=== PATIENT | female | born 1960 | race Caucasian/White ===

== ENCOUNTER 2016-06-01 08:38 | Emergency (ER) | payer OTHER ==
[2013-10-08 07:26] VITALS: BMI 26.2
[~2016-06-01 08:38] MED LIST: ELAVIL25 MG PO; HYDROCODONE-APA1 TAB PO; MOBIC7.5 MG PO; NEURONTIN 300300 MG PO; NORCO 7.5-3251 EACH PO; OXYCONTIN15 MG PO; PHENERGAN25 M1 PO; ROBAXIN-750750 MG PO; STOOL SOFTENER240 MG PO
[2016-06-01 09:05] LABS: BASOPHILS 0.2 % (0.0-2.0); EOSINOPHILS 0.5 % (0-7); HEMATOCRIT 40.8 % (36.0-48.0); HEMOGLOBIN 13.5 g/dL (12-16); IMMATURE GRANULOCYTES 0.2 % (0-5); LYMPHOCYTES 12.8 % (15-50); MCH 29.5 pg (26.0-34.0); MCHC 33.1 g/dL (31.0-37.0); MCV 89.3 fL (80.0-100.0); MEAN PLATELET VOLUME 9.6 fL (7.4-10.4); MONOCYTES 4.5 % (2-11); NEUTROPHILS 81.8 % (40-80); RBC 4.57 10x6/uL (4.00-5.40); RDW 12.3 % (11.5-14.5); WBC 12.5 10x3/uL (4.8-10.8)
[2016-06-01 09:12] LABS: APTT 22.5 SECONDS (22.8-39.4); INR 0.97 (0.85-1.17); PLATELET COUNT 259 10x3/uL (130-400); PROTIME 12.7 SECONDS (11.6-15.0)
[2016-06-01 09:13] LABS: APPEARANCE CLEAR (CLEAR); BILIRUBIN NEGATIVE (NEGATIVE); COLOR YELLOW (YELLOW); GLUCOSE NEGATIVE (NEGATIVE); KETONE NEGATIVE (NEGATIVE); LEUKOCYTE ESTERASE NEGATIVE (NEGATIVE); NITRITE NEGATIVE (NEGATIVE); PROTEIN NEGATIVE (NEGATIVE); SPECIFIC GRAVITY 1.025 (1.005-1.020); UROBILINOGEN NORMAL (NORMAL)
[2016-06-01 09:14] LABS: BACTERIA FEW /hpf (NONE SEEN); EPITHELIAL CELLS 0-5 /hpf (0-5); RED CELLS - URINE 0-5 /hpf (0-5); UDS - AMPHET NEGATIVE QUAL (NEGATIVE); UDS - BARB NEGATIVE QUAL (NEGATIVE); UDS - BENZO NEGATIVE QUAL (NEGATIVE); UDS - COCAINE NEGATIVE QUAL (NEGATIVE); UDS - METH NEGATIVE QUAL (NEGATIVE); UDS - OPIATE NEGATIVE QUAL (NEGATIVE); UDS - PCP NEGATIVE QUAL (NEGATIVE); UDS - THC NEGATIVE QUAL (NEGATIVE); WHITE CELLS - URINE 0-5 /hpf (0-5)
[2016-06-01 09:20] LABS: ALBUMIN 4.5 g/dL (3.4-5.0); ALKALINE PHOSPHATASE 91 U/L (46-116); ALT (SGPT) 29 U/L (10-68); BILIRUBIN - TOTAL 0.41 mg/dL (0.2-1.3); CALC OSMOLALITY 283 mosm/kg (275-300); CALCIUM 9.3 mg/dL (8.5-10.1); CARBON DIOXIDE 28.1 mmol/L (21.0-32.0); CHLORIDE - SERUM 101 mmol/L (98-107); CREATININE - SERUM 0.8 mg/dL (0.6-1.3); GLUCOSE 113 mg/dL (74-106); POTASSIUM - SERUM 3.6 mmol/L (3.5-5.1); PROTEIN - SERUM 8.4 g/dL (6.4-8.2); SODIUM 139 mmol/L (136-145); UREA NITROGEN 27 mg/dL (7-18); eGFR NON AFRICAN AMERICAN 79 mL/min (90-120)
== END 2016-06-01 10:26 | disposition home or self-care (01) ==
LOC: D.ER 08:38
PROVIDERS: Emergency Medicine
DX: S50.12XA Contusion of left forearm, initial encounter (principal); V43.52XA Car driver injured in collision with other type car in traffic accident, initial encounter; Y93.89 Activity, other specified; Y92.410 Unspecified street and highway as the place of occurrence of the external cause; T14.8 Other injury of unspecified body region; S16.1XXA Strain of muscle, fascia and tendon at neck level, initial encounter

== ENCOUNTER 2016-10-24 06:55 | Emergency (ER) | payer BC, OTHER ==
[2013-10-08 07:26] VITALS: BMI 26.2
[2016-10-24 07:41] LABS: BASOPHILS 0.3 % (0-2); EOSINOPHILS 1.9 % (0-7); HEMATOCRIT 36.8 % (36.0-48.0); HEMOGLOBIN 12.5 g/dL (12-16); IMMATURE GRANULOCYTES 0.2 % (0-5); MCH 29.6 pg (26.0-34.0); MONOCYTES 6.4 % (2-11); NEUTROPHILS 51.2 % (40-80); PLATELET COUNT 235 10x3/uL (130-400); RBC 4.23 10x6/uL (4.00-5.40); RDW 12.5 % (11.5-14.5); WBC 5.9 10x3/uL (4.8-10.8)
[2016-10-24 07:49] LABS: ALBUMIN 3.7 g/dL (3.4-5.0); ANION GAP 9.9 mmol/L (8-16); BILIRUBIN - TOTAL 0.16 mg/dL (0.2-1.3); CALCIUM 8.7 mg/dL (8.5-10.1); CARBON DIOXIDE 28.7 mmol/L (21.0-32.0); CREATININE - SERUM 0.9 mg/dL (0.6-1.3); POTASSIUM - SERUM 3.6 mmol/L (3.5-5.1); PROTEIN - SERUM 7.1 g/dL (6.4-8.2)
[2016-10-24 08:04] LABS: APPEARANCE CLEAR (CLEAR); BACTERIA FEW /hpf (NONE SEEN); BILIRUBIN NEGATIVE (NEGATIVE); COLOR YELLOW (YELLOW); EPITHELIAL CELLS 0-5 /hpf (0-5); GLUCOSE NEGATIVE (NEGATIVE); KETONE NEGATIVE (NEGATIVE); LEUKOCYTE ESTERASE 2+ (NEGATIVE); MUCUS >1+ /lpf (NONE SEEN); NITRITE NEGATIVE (NEGATIVE); PROTEIN NEGATIVE (NEGATIVE); RED CELLS - URINE 0-5 /hpf (0-5); UROBILINOGEN NORMAL (NORMAL)
== END 2016-10-24 22:56 | disposition home or self-care (01) ==
LOC: D.ER 06:55
PROVIDERS: Emergency Medicine
DX: N39.0 Urinary tract infection, site not specified (principal); K59.00 Constipation, unspecified; R10.9 Unspecified abdominal pain

== ENCOUNTER 2017-04-28 06:44 | Emergency (ER) | payer OTHER ==
[2013-10-08 07:26] VITALS: BMI 26.2
== END 2017-04-28 07:40 | disposition home or self-care (01) ==
LOC: D.ER 06:44
DX: R42 Dizziness and giddiness (principal)

== ENCOUNTER → 2017-06-11 19:31 | Outpatient (CLI) | payer OTHER ==
[2013-10-08 07:26] VITALS: BMI 26.2
== END | disposition home or self-care (01) ==
LOC: D.MAMMO 03-25 10:00
DX: Z12.31 Encounter for screening mammogram for malignant neoplasm of breast (principal)

== ENCOUNTER 2017-07-07 23:09 | Emergency (ER) | payer BC, MEDICAID ==
[2013-10-08 07:26] VITALS: BMI 26.2
== END 2017-07-07 23:57 | disposition home or self-care (01) ==
LOC: D.ER 23:09
DX: R42 Dizziness and giddiness (principal)

== ENCOUNTER → 2017-08-28 08:28 | Outpatient (CLI) | payer BC, MEDICAID ==
[2013-10-08 07:26] VITALS: BMI 26.2
--- NOTE | ~2017-08-28 | EC ---
PATIENT:LUIS CARLOS BARNETT DATE OF SERVICE: 08/28/17 SEX: F MEDICAL RECORD: [id number] DATE OF : 64 LOCATION:D.[facility] AGE OF PATIENT: 56 ADMISSION DATE: 08/28/17 REFERRING PHYSICIAN: INTERPRETING PHYSICIAN: BERNARDO MILES MD ECHOCARDIOGRAM REPORT ECHO CHARGES 4 ECHO COMPLETE Date: 08/28 CLINICAL DIAGNOSIS: PALPITATIONS/CP/DIZZINESS/HTN ECHOCARDIOGRAPHIC MEASUREMENTS (adult normal given) AC root (d.<3.7cm) 2.4 cm LV Septum d (<1.2 cm> 0.6 cm Valve Excursion 1.4 cm LV Septum (systole) 1.4 cm Left Atria (s.<4.0cm> 2.3 cm LVPW d(<1.2cm) 0.9 cm RV (d.<2.3cm) 2.1 cm LVPW (sytole) 1.5 cm LV diastole(<5.6CM) 4.5 cm MV E-F(>70mm/sec) cm LV systole 2.5 cm LVOT Diameter 1.9 cm MV exc.(>10mm) cm Est.ejection fraction (50-75%) % DOPPLER: LVIT cm/sec A 59.0 cm/sec E 74.0 cm/sec LA cm/sec RVSP 25.3 mmHg LVOT 100 cm/sec AOP1/2T m/s Asc. Ao 110 cm/sec RVOT 81.0 cm/sec RA cm/sec PA 88.0 cm/sec AV Gradient Peak 4.9 mmHg AV Mean 2.5 mmHg AV Area 2.4 cm MV Gradient Peak 2.5 mmHg MV Mean 1.0 mmHg MV Area cm COMMENTS: Color Blender: Dario B[employer] Agent: 4 Dr. Miles TAPE# PACS Pericardial Effusion N DATE OF SERVICE: PROCEDURE: Transthoracic echocardiogram. FINDINGS: 1. Left ventricle: Normal size, shape, structure and function. Ejection fraction is hyperdynamic at 70%. 2. The right ventricle is normal size, shape, structure and function. 3. The left atrium is normal. 4. Aortic valve is normal. ECHOCARDIOGRAM REPORT [id number] LUIS CARLOS BARNETT 5. The mitral valve is normal. 6. Tricuspid valve has trace to mild tricuspid regurgitation, otherwise normal. 7. Pericardium is normal. CONCLUSION: The patient has overall normal transthoracic echocardiogram for the patient's stated age. TRANSINT:[id number] Voice Confirmation ID: [id number] DOCUMENT ID: [id number] BERNARDO MILES MD at 0719 CC: [id number] DICTATION DATE: 09/01/17 1051 PROGRAM MANAGER ENVIRONMENTAL PLANNING: 09/01/17 1303 DEP CLI 08/28/17 [place] [id number]
[~2017-08-28 08:28] MED LIST changes: +ELIQUIS2.5 MG PO; +IMITREX100 MG PO; +KEFLEX500 MG PO; +MECLIZINE HCL25 MG PO; +OXYCODONE HCL5 MG PO; +ULTRAM50 MG PO; +VISTARIL50 MG PO; +ZANAFLEX2 M1 PO; +ZANAFLEX4 MG PO
== END | disposition home or self-care (01) ==
LOC: D.ECHO 08:28
DX: R07.9 Chest pain, unspecified (principal); R00.2 Palpitations; R42 Dizziness and giddiness; I95.9 Hypotension, unspecified

== ENCOUNTER → 2017-09-23 09:14 | Outpatient (CLI) | payer BC, MEDICAID ==
[2013-10-08 07:26] VITALS: BMI 26.2
== END | disposition home or self-care (01) ==
LOC: D.LABREF 09:14
DX: M17.11 Unilateral primary osteoarthritis, right knee (principal); Z11.8 Encounter for screening for other infectious and parasitic diseases

== ENCOUNTER 2017-09-25 07:41 | Outpatient (CLI) | payer BC, MEDICAID ==
[~2017-09-25] VITALS: Ht 160 cm; Wt 52.3 kg
--- NOTE | ~2017-09-25 | HEMODYNAMI ---
PATIENT:LUIS CARLOS BARNETT MEDICAL RECORD: [id number] : 64 LOCATION:DL[facility]CAT ADMISSION DATE: 09/25/17 Generatedon:09/25/20179:37 Patient name: LUIS CARLOS BARNETT Patient #: [id number] SSN: [id number] : 1960 Date of study: 09/25/2017 Page: Of Hemodynamic Procedure Report Patient Data Patient Demographics Procedure consent was obtained First Name: LUIS CARLOS Gender: Female Last Name: ERICKA : 1960 Middle Initial: CHERYL Age: 56 year(s) Patient #: [id number] Race: Unknown SSN: [id number] Additional ID: [id number] Contact details Address: [place] [address] State: [place] City: [place] Zip code: [address] Admission Admission Data Admission Date: 09/25/2017 Admission Time: 7:41 Arrival Date: 09/25/2017 Arrival Time: 0:00 Admit Source: Other Insurance Payor: Private health insurance, Medicaid Height (in.): 62.99 BSA: 1.53 (m2) Height (cm.): 160 BMI: 20.39 (kg/m2) Weight (lbs.): 115.08 Weight (kg.): 52.2 Lab Results Lab Result Date: 09/25/2017 Lab Result Time: 0:00 Biochemistry Name Units Result Min Max BUN mg/dl 20 --(----)*- 7 18 Creatinine mg/dl 1 --(--*-)-- 0.6 1.3 CBC Name Units Result Min Max Hemoglobin g/dl 13.1 -*(----)-- 13.5 17.5 Procedure Procedure Types Cath Procedure Diagnostic Procedure C [facility] w/Coronaries Procedure Description Procedure Date Procedure Date: 09/25/2017 Procedure Start Time: 9:17 Procedure End Time: 9:33 Procedure Staff Name Function Robi Garces MD Performing Physician Mera Marx RT Monitor Hien Holt RN Nurse Donna Yin RT Scrub Procedure Data Cath Procedure Fluoroscopy Diagnostic fluoroscopy Total fluoroscopy Time: 4.1 time: 4.1 min min Diagnostic fluoroscopy Total fluoroscopy dose: 541 dose: 541 mGy mGy Contrast Material Contrast Material Type Amount (ml) Isovue 300 65 Entry Location Entry Primary Successful Side Size Upsize Upsize Entry Closure Quintanilla ccessful Closure Location (Fr) 1 (Fr) 2 (Fr) Remarks Device Remarks Radial Right 6 Fr Mechanical artery Short Compression Estimated blood loss: 5 ml Diagnostic catheters Device Type Used For End Catheter Placement DIAGNOSTIC Diagonal 110cm 5 Multi-vessel Fr catheter ([id number]) Angiography Procedure Complications No complications Procedure Medications Medication Administration Route Dosage Oxygen etCO2 Nasal cannula 2 l/min Lidocaine 2% added to field 20 Heparin Flush Bag added to field 2 bags (1000units/500ml NS) 0.9% NaCl I.V. 100 ml/hr Radial Cocktail added to field 1 syringe (Verapomil 2mg/Nitro 400mcg/Heparin 1500units) Versed I.V. 1 mg Fentanyl I.V. 50 mcg Versed I.V. 1 mg Fentanyl I.V. 50 mcg 0.9% NaCl I.V. bolus 300 ml Hemodynamics Rest BSA: 1.53 (m2) HGB: 13.1 (g/dl) O2 Consumption: Estimated: 151.71 (ml/min) O2 Co nsumption indexed: Estimated:99.16 (ml/min/m) Heart Rate: 77 (bpm) Pressure Samples Time Site Value (mmHg) Purpose Heart Use Rate(bpm) 9:23 LV 86/-4,3 EDP 80 Gradients Valve Time Site Site Mean SEP/DFP Peak To Heart Use 1 2 (mmHg) (sec/min) Peak Rate (mmHg) (bpm) Aortic 9:24 LV AO 89 Snapshots Pre Cath Intra NCS Post Cath Vital Signs Time Heart Resp SPO2 etCO2 NIBP (mmHg) Rhythm Pain Sedation Rate (ipm) (%) (mmHg) Status Level (bpm) 9:08:37 65 18 100 38.2 132/83(112) NSR 0 (11) 10(A) , No pain 9:12:47 69 24 100 34.5 112/65(91) NSR 0 (11) 10(A) , No pain 9:16:50 70 19 100 36 102/63(83) NSR 0 (11) 10(A) , No pain 9:21:16 77 19 97 41.3 86/49(67) NSR 0 (11) 10(A) , No pain 9:25:16 76 16 94 42 88/49(71) NSR 0 (11) 10(A) , No pain 9:28:16 76 15 96 45.8 85/45(63) NSR 0 (11) 10(A) , No pain 9:32:16 82 14 98 43.5 87/51(65) NSR 0 (11) 10(A) , No pain Medications Time Medication Route Dose Verified Delivered Reason Notes Effectiveness by by 9:09:12 Oxygen etCO2 2 l/min Robi Buffie used for Nasal Mili Holt RN procedure cannula 9:09:19 Lidocaine 2% added 20ml Robi Robi for local to vial Mili Garces MD anesthetic field PETERSON 9:09:25 Heparin Flush added 2 bags Robi Robi used for Bag to Mili Garces MD procedure (1000units/500ml field PETERSON NS) 9:12:55 0.9% NaCl I.V. 300 ml Robi Buffie Per bolus Mili simpson MD 9:15:46 Versed I.V. 1 mg Robi Buffie for sedation Mili Holt RN, MD 9:15:53 Fentanyl I.V. 50 mcg Orbi Buffie for sedation Mili Holt RN, MD 9:20:41 Versed I.V. 1 mg Robi Buffie for sedation Mili Holt RN, MD 9:20:45 Fentanyl I.V. 50 mcg Robi Buffie for sedation Mili Holt RN, MD 9:20:49 Radial Cocktail added 1 Robi Robi for (Verapomil to syringe Mili Garces MD vasodilation 2mg/Nitro field PETERSON 400mcg/Heparin 1500units) 9:24:02 0.9% NaCl I.V. 100 Robi Buffie Per ml/hr Mili simpson MD Procedure Log Time Note 8:39:18 Arrival Date: 09/25/2017 12:00:00 AM 8:39:22 Admit Source: Other 8:39:34 Insurance Payor : Private health insurance, Medicaid 8:40:35 Patient Height : 62.99 inches 8:40:39 Patient Weight : 115.08 lbs 8:48:12 Lab Result : Creatinine 1 mg/dl 8:48:12 Lab Result : BUN 20 mg/dl 8:48:12 Lab Result : Hemoglobin 13.1 g/dl 8:52:38 Hien Holt RN sent for patient. Start room use. 8:52:39 Time tracking: Regular hours (M-F 7:00 - 5:00) 8:52:43 Plan of Care:Hemodynamics will remain stable., Cardiac rhythm will remain stable., Comfort level will be maintained., Respiratory function will remain adequate., Patient/ family verbilizes understanding of procedure., Procedure tolerated without complication., Recovers from procedure without complications.. 9:01:57 Patient received from Pre/Post Procedure Room to CCL 2 Alert and oriented. Tansferred to table in Supine position. 9:01:58 Warm blankets applied, and venice hugger turned on for patient comfort. 9:01:59 Correct patient and procedure confirmed by team. 9:02:04 Signed procedure consent form obtained from patient. 9:02:05 ECG and BP/O2 sat monitors applied to patient. 9:07:28 Vital chart was started 9:09:12 Oxygen 2 l/min etCO2 Nasal cannula was administered by Hien Holt RN; used for procedure; 9:09:19 Lidocaine 2% 20ml vial added to field was administered by Robi Garces MD; for local anesthetic; 9:09:25 Heparin Flush Bag (1000units/500ml NS) 2 bags added to field was administered by Robi Garces MD; used for procedure; 9:11:37 Baseline sample Acquired. 9:11:41 Rhythm: sinus rhythm 9:11:43 Full Disclosure recording started 9:11:46 H&P Date Dictated: 09/25/2017 Within 30 days and on chart., H&P Addendum completed by physician on day of procedure. (MUST COMPLETE FOR ALL OUTPATIENTS). 9:11:47 Pre-procedure instructions explained to patient. 9:11:48 Pre-op teaching completed and patient verbalized understanding. 9:11:49 Family in waiting room. 9:12:32 Patient NPO since Midnight. 9:12:33 Is the patient allergic to Iodine/contrast media? No. 9:12:34 Was the patient premedicated? No 9:12:47 Is patient on blood thinner?Yes 9:12:49 ACC The patient was administered the following blood thiners within the last 24 hours: ACCPlavix 9:12:51 Patient diabetic? No. 9:12:54 Previous problem with sedation/anesthesia? No ? 9:12:55 0.9% NaCl 300 ml I.V. bolus was administered by Hien Holt RN; Per physician; 9:12:56 Snore? Yes 9:12:57 Sleep apnea? No 9:12:57 Deviated septum? No 9:12:58 Opens mouth fully? Yes 9:12:59 Sticks out tongue? Yes 9:13:00 Airway obstruction? No ? 9:13:13 Dentures? No ? 9:13:28 Pre procedure: right dorsailis pedis pulse 2+ Normal; easily identifiable; not easily obliterated 9:13:29 Pre procedure: left dorsailis pedis pulse 2+ Normal; easily identifiable; not easily obliterated 9:13:31 Patient pain scale 0/10 ?. 9:13:37 IV patent on arrival in left forearm with 0.9% NaCl at [facility]. 9:13:39 Lab results completed and on chart. 9:13:56 Right Radial & Right Groin area was prepped with chlora-prep and draped in sterile fashion 9:13:57 Alarms reviewed by R. N. 9:13:57 Sharps counted by scrub and verified by R.N. 9:14:30 Physician arrived 9:14:31 --------ALL STOP TIME OUT------ 9:14:31 Final Timeout: patient, procedure, and site verified with staff and physician. All members of the team are in agreement. 9:14:34 Right Radial & Right Groin site verified by team. 9:14:37 Physical assessment completed. ASA score P 2 - A patient with mild systemic disease as per Robi Garces MD. 9:14:40 Sedation plan: IV Moderate Sedation Medication:Versed, Fentanyl 9:14:43 Use device set Radial Dx or PCI 9:14:44 ACIST Syringe (19199) opened to sterile field. 9:14:45 Medline Cath Pack ([id number]) opened to sterile field. 9:14:45 Bag Decanter () opened to sterile field. 9:14:46 DIAGNOSTIC WIRE .035 260cm J wire (722435) opened to sterile field. 9:14:46 ACIST Hand Control (05506) opened to sterile field. 9:14:47 ACIST Manifold (14056) opened to sterile field. 9:14:47 Tegaderm 4 x 4 (1626W) opened to sterile field. 9:14:48 MBrace Wrist Support ([id number]) opened to sterile field. 9:14:50 SHEATH 6Fr Prelude Radial ([id number]) opened to sterile field. 9:15:46 Versed 1 mg I.V. was administered by Hien Holt RN; for sedation; 9:15:53 Fentanyl 50 mcg I.V. was administered by Hien Holt RN; for sedation; 9:17:38 Procedure started. 9:17:50 Local anesthetic to right radial artery with Lidocaine 2% by Robi Garces MD.INITIAL ACCESS ONLY 9:17:59 A 6 Fr Short sheath was inserted into the Right Radial artery 9:20:11 A DIAGNOSTIC Diagonal 110cm 5 Fr catheter (599425) was advanced over the wire and used for Multi-vessel Angiography. 9:20:41 Versed 1 mg I.V. was administered by Hien Holt RN; for sedation; 9:20:45 Fentanyl 50 mcg I.V. was administered by Hien Holt RN; for sedation; 9:20:49 Radial Cocktail (Verapomil 2mg/Nitro 400mcg/Heparin 1500units) 1 syringe added to field was administered by Robi Garces MD; for vasodilation; 9:23:48 LV hemodynamics recorded. 9:23:49 LV gram done using [place] 9:24:01 Injector settings: Ml/sec: 12, Volume: 8, 9:24:02 0.9% NaCl 100 ml/hr I.V. was administered by Hien Holt RN; Per physician; 9:24:20 EF : 65 % 9:24:56 LCA angiography performed. 9:24:59 Injector settings: Ml/sec: 3, Volume: 6, 9:31:34 RCA angiography performed. 9:31:38 Injector settings: Ml/sec: 3, Volume: 6, 9:31:52 Catheter removed. 9:31:55 TR BAND Standard ([id number]) opened to sterile field. 9:32:03 Sheath removed intact; hemostasis achieved with Mechanical Compression to the Right Radial artery. 9:32:05 Procedure ended.(Physican Out) 9:32:38 Fluoroscopy time 04.10 minutes. 9:32:41 Fluoroscopy dose: 541 mGy 9:32:41 Flurop Dose total: 541 9:32:45 Contrast amount:Isovue 300 65ml. 9:32:46 Sharps counted by scrub and verified by R.N. 9:32:49 TR band inflated with 10cc of air. 9:32:51 Insertion/operative site no bleeding no hematoma. 9:32:58 Post right radial artery:stable 9:33:00 Post Procedure Pulses reassessed and unchanged 9:33:03 Post procedure rhythm: unchanged. 9:33:06 Estimated blood loss: 5 ml 9:33:07 Post procedure instruction explained to patient.Patient verbalizes understanding. 9:33:08 Patient needs reinforcement of post procedure teaching. 9:33:19 Procedure type changed to Cath procedure, Diagnostic procedure, LHC, LHC w/Coronaries 9:33:20 Procedure and supply charges have been captured, reviewed, submitted and are correct. 9:33:24 Procedure Complication : No complications 9:33:27 Vital chart was stopped 9:33:27 See physician's report for complete and final results. 9:33:31 Report given to Pre/Post Procedure Room. 9:33:34 Patient transfered to Pre/Post Procedure Room with Stretcher. 9:33:36 Procedure ended. 9:33:36 Full Disclosure recording stopped 9:33:41 End room use (Document Last) Device Usage Item Name Manufacture Quantity Catalog Number Hospital Part Current M inimal Lot# / Charge Number Stock Stock Serial# Code ACIST Syringe Acist 1 [id number] 147425 006267 080303 2 0 (12224) [employer] Medline Cath Cardinal 1 [id number] 222427 13450 849044 5 Pack Health ([id number]) Bag Decanter Microtek 1 263894 10374 010715 5 () Medical Inc. DIAGNOSTIC WIRE St [place] 1 806247 389209 907957 398201 3 0 .035 260cm J wire (547346) ACIST Hand Acist 1 44876 356791 416222 825055 5 Control (27830) [employer] Inc ACIST Manifold Acist 1 41687 092106 678403 353748 5 (69407) [employer] Systems Inc Tegaderm 4 x 4 3M 1 1626W 718003 425738 720612 5 (1626W) MBrace Wrist Advanced 1 140-0250-00 159953 17901 969911 5 Support Vascular ([id number]) Dynamics SHEATH 6Fr Merit 1 [id number] 459819 139151 293124 5 Prelude Radial Medical ([id number]) DIAGNOSTIC Terumo 1 40-1876 974762 964609 061123 5 Diagonal 110cm 5 Fr catheter (719424) TR BAND Terumo 1 [id number] 507691 834263 147212 4 0 Standard ([id number]) Signature Audit Huslia Stage Time Signature Unsigned Intra-Procedure 09/25/2017 Mera Marx 9:37:34 AM RT(R) Signatures Monitor : Mera Marx RT Signature : Date : Time : [facility] [address] [place] [address]
--- NOTE | ~2017-09-25 | OP ---
PATIENT NAME: LUIS CARLOS BARNETT MEDICAL RECORD: [id number] :64 LOCATION:D.CAT ADMISSION DATE: SURGEON: ROBI MILES MD DATE OF OPERATION: 09/25/2017 PROCEDURES: Left heart cath, LV gram, coronary angiogram. SOCIAL SERVICES ASSISTANT: Robi Miles MD PROCEDURE IN DETAIL: The patient was brought into cardiac catheterization lab. The right wrist was sterilely prepped and draped. We had a 6-Swedish sheath placed in the right radial artery using modified Seldinger technique. We then intubated the left coronary artery, the right coronary artery, and the left ventricular cavity respectively for complete left heart catheterization. FINDINGS: 1. Left main is normal. 2. The LAD has a 40% to 50% proximal stenosis with diffuse plaquing. 3. The circumflex has mild plaquing. It is nondominant. 4. The RCA is a dominant vessel with mild plaquing. HEMODYNAMICS: Left ventricular ejection fraction of 65%. End-diastolic pressure was normal. There was no significant mitral regurgitation. No gradient across the aortic valve. IMPRESSION: Mild coronary artery disease with preserved LV systolic function. No hemodynamically significant stenosis. Would recommend aggressive secondary risk factor modifications. TRANSINT:[id number] Voice Confirmation ID: [id number] DOCUMENT ID: [id number] ROBI MILES MD at 1144 CC: [id number] DICTATION DATE: 09/25/17 0935 SHUTTLECOCK FEATHER TRIMMER: 09/25/17 1004 DEP CLI 09/25/17 [place] [id number] [place] [address]
[2017-09-25 06:56] VITALS: BP 120/78; Ht 160 cm; Wt 52.3 kg
[2017-09-25 07:02] LABS: HEMATOCRIT 39.7 % (36.0-48.0); HEMOGLOBIN 13.1 g/dL (12-16); MCH 29.5 pg (26.0-34.0); MCV 89.4 fL (80.0-100.0); MEAN PLATELET VOLUME 9.1 fL (7.4-10.4); PLATELET COUNT 239 10x3/uL (130-400); RBC 4.44 10x6/uL (4.00-5.40); RDW 12.6 % (11.5-14.5); WBC 4.7 10x3/uL (4.8-10.8)
[2017-09-25 07:27] LABS: ANION GAP 8.1 mmol/L (8-16); CALCIUM 8.6 mg/dL (8.5-10.1); CARBON DIOXIDE 32.7 mmol/L (21.0-32.0); POTASSIUM - SERUM 3.8 mmol/L (3.5-5.1)
[~2017-09-25 07:41] MED LIST changes: -ELIQUIS2.5 MG PO; -KEFLEX500 MG PO; -MECLIZINE HCL25 MG PO; -OXYCODONE HCL5 MG PO; -VISTARIL50 MG PO; -ZANAFLEX2 M1 PO
[2017-09-25 07:51] LABS: BASOPHILS 1 % (0-2); EOSINOPHILS 3 % (0-7); LYMPHOCYTES 51 % (15-50); MONOCYTES 10 % (2-11); NEUTROPHILS 34 % (40-80); PLATELET ESTIMATE NORMAL
[2017-10-07] MEDS ORDERED: ELAVIL25 MG PO (12:18)
[2017-10-07] MEDS ORDERED: ZANAFLEX2 M1 PO (12:19)
[2017-10-07] MEDS ORDERED: MECLIZINE HCL25 MG PO (12:22)
== END 2017-09-25 12:05 ==
LOC: D.CATH 07:41
PROVIDERS: Internal Medicine Cardiovascular Disease
DX: R07.9 Chest pain, unspecified (principal); R94.39 Abnormal result of other cardiovascular function study; R42 Dizziness and giddiness; E78.5 Hyperlipidemia, unspecified

== ENCOUNTER 2017-10-08 10:00 | Inpatient (IN) | payer BC, MEDICAID ==
[~2017-10-08] VITALS: Ht 160 cm; Wt 53.2 kg
--- NOTE | ~2017-10-08 | OP ---
PATIENT NAME: LUIS CARLOS COTTO MEDICAL RECORD: [id number] :64 LOCATION:D.[facility].2203 ADMISSION DATE:10/14/17 SURGEON: DELMY STINSON, DATE OF OPERATION: 10/14/2017 PROCEDURE PERFORMED: Right total knee arthroplasty. PREOPERATIVE DIAGNOSIS: Right knee osteoarthritis, end-stage. POSTOPERATIVE DIAGNOSIS: Right knee osteoarthritis, end-stage. INDICATIONS: Ms. Cotto is a 56-year-old female, who presented to my office with right knee osteoarthritis, been seen for about a year. We tried injections in all manner of conservative management. She was tired of the knee pain, affecting her activities of daily living and she was ready to get something done to get back to doing things she enjoyed due to the pain and stiffness. I informed her we could do a total knee replacement. She was aware of the risks and benefits including infection, bleeding, nerve damage, damaged vessels, swelling, need for further surgery. She was okay with that risk and the risk of blood clots and she consents to the procedure. DESCRIPTION OF PROCEDURE: The patient was given a block preoperatively by anesthesia. Taken to the operative suite, given a gram of Ancef and gentamicin as well due to urinary tract infection. Once this was given, the patient was in the supine position and LMA was placed, and she was put to sleep with a general anesthetic. The right lower extremity was prepped and draped in sterile fashion. A timeout was performed. Everyone was in agreeance with the correct side, site, patient, and procedure. Incision was then marked out on the anterior aspect of the knee and then the knee was wrapped with Ioban. The right lower leg was then exsanguinated with an Esmarch and tourniquet was inflated to 350 mmHg and it was up for 42 minutes. Once tourniquet was inflated, the Esmarch was removed and the incision began on the skin with a 10 blade scalpel down to the capsule itself. A fresh 10-blade was used then to do the medial parapatellar approach of the capsulotomy and the knee was exposed. The fat pad was taken out and the knee was brought to extension and the patella was milled down. The knee was flexed. Retractors were placed and the intramedullary canal was entered using a reamer. The distal femur guide was then entered into the femur and it was cut off the guide. The tibia was then exposed. The ACL was removed and the tibia was cut as well. The knee was then brought into extension and the menisci were removed using a lamina charging operator and Army-Matlacha to retract. Once the menisci removed, extension block was put in and seemed to need to remove two more millimeters of tibia, this was done and the extension block fit well. The knee was then flexed up and the femur was sized to be a 60 cutting block. The 4-in-1 cutting block was put into place and the femur was cut. The trial was then put on the femur and then the tibia was drilled for the implant. A 31 thin patella, 6.2 was drilled for. Then, the tibial tray with a 10 poly was floated into the knee and ranged 4 to 5 times and rotation was marked of the tibial tray. The lug holes were then drilled on the femur and the femoral trial was removed as well as the tibial tray. The tibia was then exposed and sized to be a 71; 71 fit the best and this was drilled and punched. The cement was mixed. The tibia was thoroughly irrigated and then cement was placed on the tibial implant and the tibia itself. This was then impacted into place with the excess cement removed. This was done twice. The femur implant was then placed on the femur and then a 10 poly was put in between them. Knee was brought to extension and held that way and then the patella was put on the patellar OPERATIVE REPORT [id number] LUIS CARLOS COTTO squeezer, it was put on the place and held in place with the excess cement removed. The tourniquet was then let down at 42 minutes and all bleeders were then coagulated. After the cement had dried, the patellar squeezer was removed and a trial to a 12; 12 poly seemed to fit the best. A suture retaining bearing poly and this was then put into place. The locking mechanism pin for the tibial tray was then put into place and then the knee was thoroughly irrigated and Surgicel beads were put in the knee. The capsule was then closed with #1 Vicryls in a [id number] fashion and then the capsule was irrigated and the skin was closed with 2-0 Vicryl and a ZipLine was placed on the knee. A dressing was put on of Adaptic, 4 x 4s, ABD, Webril, Leo wrap and then a stocking up to the knee, and the patient was awakened and taken to recovery in stable condition. Blood loss was approximately 150 mL. COMPLICATIONS: None. TRANSINT:[id number] Voice Confirmation ID: [id number] DOCUMENT ID: [id number] DELMY STINSON DO at 1324 CC: [id number] DICTATION DATE: 10/14/17903 BILLING CLERK: 10/14/17 0947 ADM IN [facility] [address] [place] [address]
--- NOTE | ~2017-10-08 | CN ---
PATIENT NAME:LUIS CARLOS BARNETT MEDICAL RECORD: [id number] : 64 LOCATION:D.[facility]2 ADMIT DATE: 10/14/17 ACCOUNT: [id number] CONSULTING PHYSICIAN: ERICA EL DO REFERRING PHYSICIAN: DELMY STINSON DO DATE OF CONSULTATION: 10/15/2017 REASON FOR CONSULT: Medical management; insomnia; migraines, the patient is admitted; right total knee replacement secondary to degenerative arthritis postop day #1. REVIEW OF SYSTEMS: GENERAL: No acute change in weight or appetite. HEENT: No cephalgia, visual changes, tinnitus, epistaxis, or dysphagia. CARDIOVASCULAR: Denies chest pain, denies palpitations. PULMONARY: Denies hemoptysis, denies night sweats. GASTROINTESTINAL: Denies hematemesis, hematochezia or melena. Admits bowel movement last night. GENITOURINARY: Denies dysuria. MUSCULOSKELETAL: Status post right total knee, history of degenerative arthritis. ENDOCRINE: Denies polyuria, polydipsia, or polyphagia. CURRENT MEDICATIONS: Amitriptyline 50 mg at bedtime, tizanidine 2 mg b.i.d., Imitrex 100 mg p.r.n. migraine, pain medication for acute surgery, Eliquis for DVT prophylaxis. ALLERGIES: REPORTED LYRICA AND MORPHINE. PHYSICAL EXAMINATION: VITAL SIGNS: Temp 97.5, blood pressure is 117/68, heart rate 94, respirations 18, O2 sats 98% room air. GENERAL: Alert, oriented, pain presently well controlled. HEENT: Normocephalic, atraumatic. Eyes: Pupils equal, round, reactive. Ears: Canals patent, TMs are intact. Nose: Nares patent without drainage. Throat: No erythema, no exudates. NECK: Supple. No lymphadenopathy, no JVD. HEART: Regular rate and rhythm. No S3, S4, no rub. LUNGS: Clear to auscultation bilaterally. Breathing is nonlabored. ABDOMEN: Soft, nontender. Bowel sounds positive. EXTREMITIES: Present times 4. Right lower extremity and range of motion device, the patient is tolerating well. LABORATORY DATA: CBC: White count 10.4, hemoglobin 11.1, hematocrit 33.3, platelets 208. ASSESSMENT AND PLAN: 1. Status post right total knee, continue orthopedic pathway, deep venous thrombosis prophylaxis. 2. History of migraines. Continue medications p.r.n. 3. Insomnia. Continue amitriptyline 50 mg at bedtime. Supportive care. I appreciate this consult. We will follow accordingly. TRANSINT:[id number] Voice Confirmation ID: [id number] DOCUMENT ID: [id number] CONSULT REPORT [id number] LUIS CARLOS BARNETT, ERICA COHEN at 0752 CC: [id number] DICTATION DATE: 10/15/17 08 SALES PLANNING MANAGER: 10/15/17 0853 ADM IN [place] [address] [place] [address]
[~2017-10-08 10:00] MED LIST changes: +MECLIZINE HCL25 MG PO; +ZANAFLEX2 M1 PO
[2017-10-08 12:17] LABS: BASOPHILS 0.7 % (0-2); EOSINOPHILS 1.3 % (0-7); HEMATOCRIT 39.1 % (36.0-48.0); HEMOGLOBIN 13.1 g/dL (12-16); IMMATURE GRANULOCYTES 0.2 % (0-5); LYMPHOCYTES 35.3 % (15-50); MCHC 33.5 g/dL (31.0-37.0); MCV 89.7 fL (80.0-100.0); NEUTROPHILS 56.5 % (40-80); PLATELET COUNT 253 10x3/uL (130-400); RBC 4.36 10x6/uL (4.00-5.40); RDW 12.6 % (11.5-14.5)
[2017-10-08 12:23] LABS: CALC OSMOLALITY 278 mosm/kg (275-300); CALCIUM 8.3 mg/dL (8.5-10.1); CARBON DIOXIDE 33.7 mmol/L (21.0-32.0); CHLORIDE - SERUM 103 mmol/L (98-107); CREATININE - SERUM 0.8 mg/dL (0.6-1.3); GLUCOSE 76 mg/dL (74-106); POTASSIUM - SERUM 3.7 mmol/L (3.5-5.1); SODIUM 140 mmol/L (136-145); UREA NITROGEN 14 mg/dL (7-18); eGFR NON AFRICAN AMERICAN 79 mL/min (90-120)
[2017-10-08 12:28] LABS: APTT 26.8 SECONDS (22.8-39.4); INR 0.91 (0.85-1.17); PROTIME 11.9 SECONDS (11.6-15.0)
[2017-10-08 12:34] LABS: APPEARANCE CLEAR (CLEAR); BACTERIA FEW /hpf (NONE SEEN); BILIRUBIN NEGATIVE (NEGATIVE); COLOR YELLOW (YELLOW); EPITHELIAL CELLS OCC /hpf (0-5); GLUCOSE NEGATIVE (NEGATIVE); KETONE NEGATIVE (NEGATIVE); NITRITE NEGATIVE (NEGATIVE); PROTEIN NEGATIVE (NEGATIVE); RED CELLS - URINE 0-5 /hpf (0-5); UROBILINOGEN NORMAL (NORMAL); WHITE CELLS - URINE OCC /hpf (0-5)
[2017-10-14 06:17] VITALS: BP 124/68; BMI 20.4
[2017-10-14 10:32] VITALS: BP 114/71
[2017-10-14 11:46] VITALS: BP 114/71; Ht 160 cm; Wt 53.2 kg
[2017-10-14 12:43] VITALS: BP 103/37
[2017-10-14 20:00] VITALS: BP 108/58
[2017-10-15 04:00] VITALS: BP 117/68
[2017-10-15 04:24] LABS: HEMATOCRIT 33.3 % (36.0-48.0); HEMOGLOBIN 11.1 g/dL (12-16); MCH 30.1 pg (26.0-34.0); MCHC 33.3 g/dL (31.0-37.0); MCV 90.2 fL (80.0-100.0); MEAN PLATELET VOLUME 9.6 fL (7.4-10.4); RBC 3.69 10x6/uL (4.00-5.40); RDW 12.3 % (11.5-14.5); WBC 10.4 10x3/uL (4.8-10.8)
[2017-10-15 08:28] VITALS: BP 124/70
[2017-10-15 12:15] VITALS: BP 94/50
[2017-10-15 16:39] VITALS: BP 126/75
[2017-10-15 20:00] VITALS: BP 104/70
[2017-10-16 04:00] VITALS: BP 138/81
[2017-10-16 04:30] LABS: HEMATOCRIT 32.7 % (36.0-48.0); HEMOGLOBIN 10.8 g/dL (12-16); MCH 29.5 pg (26.0-34.0); MCV 89.3 fL (80.0-100.0); MEAN PLATELET VOLUME 9.7 fL (7.4-10.4); RBC 3.66 10x6/uL (4.00-5.40); RDW 12.7 % (11.5-14.5); WBC 9.1 10x3/uL (4.8-10.8)
[2017-10-16 21:00] VITALS: BP 117/100
[2017-10-17 04:00] VITALS: BP 143/83
[2017-10-17 08:28] VITALS: BP 146/89
[2017-10-17] MEDS ORDERED: OXYCODONE HCL5 MG PO (09:02)
[2017-10-17] MEDS ORDERED: ELIQUIS2.5 MG PO (09:02)
[2017-10-17] MEDS ORDERED: KEFLEX500 MG PO (09:03)
[2017-10-17] MEDS ORDERED: VISTARIL50 MG PO (09:03)
[2017-10-17 13:18] VITALS: BP 111/73
== END 2017-10-17 14:21 | disposition home or self-care (01) | DRG 470 ==
LOC: D.SDCHOLD 10:00 → D.MS 10-14 05:00 → D.SDCHOLD 10-14 05:00 → D.MS 10-14 09:34 → D.SDCHOLD 10-14 10:00 → D.MS 10-14 16:30
PROVIDERS: Orthopaedic Surgery
PROC: 0SRC0J9 Replacement of Right Knee Joint with Synthetic Substitute, Cemented, Open Approach (ICD-10-PCS; principal; 2017-10-14 07:30)
DX: M17.11 Unilateral primary osteoarthritis, right knee (principal); G47.00 Insomnia, unspecified; Z87.891 Personal history of nicotine dependence

== ENCOUNTER → 2017-11-10 16:53 | Outpatient (CLI) | payer BC, MEDICAID ==
[~2017-11-10 16:53] MED LIST changes: +ELIQUIS2.5 MG PO; +KEFLEX500 MG PO; +OXYCODONE HCL5 MG PO; +VISTARIL50 MG PO
[2017-11-10 19:04] LABS: CHOL - HDL RATIO 4.6 ratio (2.3-4.1); LDL-HDL RATIO 3.1 ratio (1.5-3.5)
== END | disposition home or self-care (01) ==
LOC: D.LABREF 16:53
PROVIDERS: Internal Medicine Cardiovascular Disease
DX: E78.5 Hyperlipidemia, unspecified (principal)

== ENCOUNTER 2018-01-06 09:12 | Day surgery (SDC) | payer MEDICAID ==
[2018-01-05 14:53] LABS: BASOPHILS 0.4 % (0-2); EOSINOPHILS 1.9 % (0-7); HEMATOCRIT 36.8 % (36.0-48.0); HEMOGLOBIN 11.9 g/dL (12-16); IMMATURE GRANULOCYTES 0.2 % (0-5); LYMPHOCYTES 26.1 % (15-50); MCH 28.1 pg (26.0-34.0); MCHC 32.3 g/dL (31.0-37.0); MEAN PLATELET VOLUME 8.4 fL (7.4-10.4); MONOCYTES 5.6 % (2-11); NEUTROPHILS 65.8 % (40-80); RBC 4.23 10x6/uL (4.00-5.40); RDW 13.6 % (11.5-14.5); WBC 8.2 10x3/uL (4.8-10.8)
[2018-01-05 15:19] LABS: PLATELET COUNT 353 10x3/uL (130-400)
[2018-01-05 17:53] LABS: ERYTHROCYTE SEDIMENTATION RATE 43 mm/hr (0-30)
[~2018-01-06] VITALS: Ht 160 cm; Wt 51.3 kg
--- NOTE | ~2018-01-06 | OP ---
PATIENT NAME: LUIS CARLOS COTTO MEDICAL RECORD: [id number] :64 LOCATION:[facility] ADMISSION DATE: SURGEON: FLO STINSON DO DATE OF OPERATION: 01/06/2018 PROCEDURE PERFORMED: Right knee arthroscopy with lysis of adhesions and manipulation under anesthesia. PREOPERATIVE DIAGNOSIS: Arthrofibrosis of the right knee, status post right total knee on 10/14/2017. POSTOPERATIVE DIAGNOSIS: Arthrofibrosis of the right knee, status post right total knee on 10/14/2017. INDICATIONS: Ms. Cotto is a 57-year-old female who had her right knee replaced on the 14 of October this year. She was doing well postop and then, in the last month, she started regressing as far as her motion. She went from having 120 of flexion to 95. She stated it kept getting tighter and wanted something done. I informed her that we should probably jump on it quick before it froze up more and she was onboard with that. I informed her of the risks and benefits of the procedure including infection, that it was high risk doing this, getting adhesions out with the knee scope and that we would test her for any infection. Her labs showed no white count elevation. Her CRP was not elevated; however, her ESR was elevated to 43. With those other two not being elevated, I then did not suspect infection. She was informed of the risks and benefits and consented to the procedure. SURGEON: Flo Stinson DO DESCRIPTION OF PROCEDURE: The patient was taken to the operative suite and laid in the supine position. Right lower extremity was prepped and draped in sterile fashion. Time-out was performed and everyone was in agreement with correct side, site, and patient. The patient received gentamicin and Ancef preoperatively. Then, the knee scope began. It was first established in the lateral portal with a scalpel and the scope was entered with the trocar and then the scope replaced the trocar. The medial portal was then established with an 18-gauge spinal needle and a #15 blade scalpel. Trocar was then entered and a shaver. Adhesions were taken down in superior pouch and along the medial and lateral aspects of the knee. The scope was then switched from the lateral portal to the medial portal. The shaver was placed through the lateral portal and again more adhesions were taken down. Everything was removed at that time and manipulation was done with the knee. The knee flexed back all the way to her buttocks, getting greater than 125 degrees of flexion at that point. This was held for few seconds and then released. The portal sites were closed with 4-0 Monocryl on the lateral side with inverted interrupted stitch, the medial portal with inverted interrupted, and then a horizontal mattress over it on the skin. Then, Adaptic, 4 x 4s, and Tegaderm were placed on the knee. Webril and Leo wrap were then placed on the knee. The patient was awakened and taken to recovery in stable condition. BLOOD LOSS: Minimal. COMPLICATIONS: None. TRANSINT:[id number] Voice Confirmation ID: [id number] DOCUMENT ID: [id number] OPERATIVE REPORT [id number] LUIS CARLOS COTTO,FLO Davis DO at 1825 CC: [id number] DICTATION DATE: 01/06/18 1344 BIOASSAYIST: 01/06/18 1532 [facility] 01/06/18 [address] [place] [address]
[2018-01-06 09:26] VITALS: Ht 160 cm; Wt 51.3 kg
[2018-01-06] MEDS ORDERED: OXYCODONE-APAP1 T10 PO (13:34)
[2018-01-06] MEDS ORDERED: VISTARIL50 MG PO (13:35)
[2018-01-06] MEDS ORDERED: TORADOL10 MG PO (13:35)
[2018-01-06] MEDS ORDERED: ZOFRAN ODT4 MG/UDTAB PO (13:37)
== END 2018-01-06 16:30 | disposition home or self-care (01) ==
LOC: D.OPS 09:12 → D.PAN 15:30 → D.OPS 16:30
PROVIDERS: Orthopaedic Surgery
DX: T84.82XA Fibrosis due to internal orthopedic prosthetic devices, implants and grafts, initial encounter (principal); M24.661 Ankylosis, right knee; Z01.812 Encounter for preprocedural laboratory examination

== ENCOUNTER → 2018-05-12 17:32 | Outpatient (CLI) | payer MEDICAID ==
[~2018-05-12 17:32] MED LIST changes: +OXYCODONE-APAP1 T10 PO; +TORADOL10 MG PO; +ZOFRAN ODT4 MG/UDTAB PO
[2018-05-12 18:38] LABS: CHOL - HDL RATIO 4.8 ratio (2.3-4.1); LDL-HDL RATIO 3.3 ratio (1.5-3.5)
== END | disposition home or self-care (01) ==
LOC: D.LABREF 17:32
PROVIDERS: ATTEND Internal Medicine Interventional Cardiology
DX: E78.5 Hyperlipidemia, unspecified (principal)

== ENCOUNTER 2018-08-28 00:16 | Emergency (ER) | payer MEDICAID ==
[~2018-08-28] VITALS: Ht 160 cm; Wt 68.2 kg
[2018-08-28 00:20] VITALS: Ht 160 cm; Wt 68.2 kg
[2018-08-28 02:28] VITALS: BP 133/79
== END 2018-08-28 02:28 | disposition home or self-care (01) ==
LOC: D.ER 00:16
DX: T16.2XXA Foreign body in left ear, initial encounter (principal); X58.XXXA Exposure to other specified factors, initial encounter; Y93.89 Activity, other specified; Y92.89 Other specified places as the place of occurrence of the external cause

== ENCOUNTER → 2018-12-09 13:00 | Outpatient (CLI) | payer BC, MEDICAID ==
[2018-08-28 00:20] VITALS: BMI 26.6
--- NOTE | 2018-12-09 14:03 | NUR ---
TIME OUT PERFORMED BY DR. BHAT & NICOLE NICOLE RTR. PATIENT, , & PROCEDURE VERIFIED
== END | disposition home or self-care (01) ==
LOC: D.RAD 13:00
PROVIDERS: ATTEND Orthopaedic Surgery
DX: S43.432A Superior glenoid labrum lesion of left shoulder, initial encounter (principal)

== ENCOUNTER 2019-04-30 06:15 | Day surgery (SDC) | payer BC, MEDICAID ==
[2019-04-29 11:06] LABS: HEMATOCRIT 39.8 % (36.0-48.0); HEMOGLOBIN 12.8 g/dL (12-16); MCH 29.1 pg (26.0-34.0); MCHC 32.2 g/dL (31.0-37.0); MCV 90.5 fL (80.0-100.0); RBC 4.4 10x6/uL (4.00-5.40); RDW 13.3 % (11.5-14.5); WBC 7.8 10x3/uL (4.8-10.8)
--- NOTE | 2019-04-29 14:19 | NUR ---
DALE FROM DR STINSON'S CALLED AND STATED PT WENT AND SHOW DR MORROW TODAY FOR HER ABNORMAL EKG THAT NEEDED CARDIAC CLEARANCE PER DR LEMON. DR MORROW STATED SHE HAD NO CHANGED FROM LAST YR AND PROCEED WITH SURGERY.
[~2019-04-30] VITALS: Ht 160 cm; Wt 50.8 kg
[~2019-04-30 06:15] MED LIST changes: +CYCLOBENZAPRINE10 MG PO; +FEXOFENADINE HC60 MG PO; +PERCOCET 7.5/321 TAB PO
[2019-04-30 07:39] VITALS: BP 139/90; Ht 160 cm; Wt 50.8 kg
[2019-04-30] MEDS ORDERED: VISTARIL50 MG PO (08:30)
[2019-04-30] MEDS ORDERED: DILAUDID4 MG PO (08:30)
[2019-04-30] MEDS ORDERED: ZOFRAN ODT4 MG/UDTAB PO (08:31)
--- NOTE | 2019-04-30 10:48 | NUR ---
1041-REC'D FROM RR. DROWSY,EASILY AROUSED WITH VERBAL STIMULI. DRESSING TO LEFT SHOULDER CDI. DENIES PAIN. VSS. REVIEWED DISCHARGE CRITERIA. CL IN EASY REACH
--- NOTE | 2019-04-30 11:41 | NUR ---
1120-AMBULATED TO RESTROOM WITH STEADY GAIT. VSS. DENIES PAIN. DRESSINGS TO LEFT SHOUDER CDI. LEFT ARM IN SLING. FULL LIQUID TRAY TO ROOM.
--- NOTE | 2019-04-30 11:42 | NUR ---
1135-TOLERATED TRAY. DENIES PAIN. DRESSING CDI. REMOVED IV FROM RIGHT ARM WITH CATH INTACT,DISPOSED INTO SHARPS,COVERED SITE WITH GUAZE,SECURED WITH MEDIPORE TAPE. AWAITING FOR FAMILY TO ARRIVE TO TRANSPORT HOME
--- NOTE | 2019-04-30 15:25 | OP ---
PATIENT NAME: LUIS CARLOS COTTO MEDICAL RECORD: [id number] :64 LOCATION:[facility] ADMISSION DATE: SURGEON: FLO STINSON DO DATE OF OPERATION: 04/30/2019 PROCEDURE PERFORMED: Left shoulder arthroscopy with subacromial decompression, distal clavicle excision, biceps tenodesis, and labral debridement. PREOPERATIVE DIAGNOSIS: Left shoulder SLAP tear, AC joint arthritis, subacromial impingement, and Ma[place]on complex. POSTOPERATIVE DIAGNOSIS: Left shoulder SLAP tear, AC joint arthritis, subacromial impingement, and [place]on complex. INDICATIONS: Ms. Cotto is a 58-year-old female, who has had left shoulder pain for quite some time. She had an MR arthrogram done that showed a SLAP tear and AC joint arthritis as well as subacromial inflammation and impingement. She went some time with just getting injections, which did not help. She wanted something done surgically as it hurt her quite a bit. I informed her of the risks including infection, bleeding, damage to nerves and vessels, trevor deformity, continued pain, frozen shoulder, and she was okay with all that and signed the consent. SURGEON: Flo Stinson DO PITCH WORKER: Jalen Calderon, certified surgical perioperative assistant. He assisted with closing. DESCRIPTION OF PROCEDURE: The patient was given a block by anesthesia in the preoperative area, given 900 mg of clindamycin preoperatively, taken to the operative suite, laid in the right lateral decubitus position with the left shoulder up, sedated and LMA was placed. The left shoulder was then prepped and draped in sterile fashion. A timeout was performed and everyone was in agreement with the correct side, site, patient, and procedure. We then began by inflating the shoulder joint itself with 60 mL of normal saline through a posterior portal with an 18-gauge spinal needle and then established a portal with an 11-blade scalpel. A trocar was entered in the shoulder joint. Upon entering the shoulder joint, the anterior portal was established with an 18-gauge spinal needle and 11-blade scalpel. Trocar was then brought in. The cord-like Juan complex was seen attached to the superior labrum, felt pulling on it causing the SLAP tear as in the bicep as well long head of the biceps tendon. I inspected the rotator cuff. They were in good shape, subscap, supraspinatus, and infraspinatus. There were no loose bodies in the inferior gutter and the cartilage was in good shape. No tear seen in the cartilage. I then brought in a burner and did bicep tenotomy at that time and also transected the cord-like structure that was pulling on the labrum. I then debrided the labrum with a burner. We then went to the subacromial space and established the lateral portal with an 18-gauge spinal needle and 11-blade scalpel. Did a debridement in the subacromial space and did an acromioplasty of the distal lateral acromion and through the anterior portal did a distal clavicle excision opening up the AC joint to approximately 7 mm. I then turned the water off and suction on, removed the excess fluid out of the shoulder. Brought attention to the anterior humerus. An incision was made along the anterior humerus. Careful dissection was made down the long head of the biceps tendon. This was brought out through the incision and secured with an Allis clamp. I then put a OPERATIVE REPORT [id number] LUIS CARLOS COTTO unicortical hole in the anterior humerus and JuggerLoc 2.9 anchor into the anterior humerus and put the biceps tendon through it and cinched it down to the anterior bicep and then cut the excess suture from the loop and sutured it down into the bicep passing through it twice and then tying it down. I then tied this down, cut the excess tendon and suture, and irrigated the site with normal saline and then Jalen Calderon closed the skin with 2-0 Vicryl in an inverted interrupted fashion, 4-0 Monocryl ran on the skin, and 4-0 Monocryl in an inverted interrupted fashion all the portal sites. Then closed with Dermabond glue. Telfa and Tegaderm over that. She was then awakened and taken to recovery in stable condition. BLOOD LOSS: Minimal. COMPLICATIONS: None. TRANSINT:[id number] Voice Confirmation ID: [id number] DOCUMENT ID: [id number] FLO STINSON DO at 1525 CC: [id number] DICTATION DATE: 04/30/19 1011 [employer]CHO[employer] CHEMISTRY TEACHER: 04/30/19 1328 [facility] [address] [place] [address]
--- NOTE | 2019-04-30 17:33 | NUR ---
1330-FAMILY ARRIVED TO TRANSPORT PT HOME. ESCORTED OUT VIA W/C. STABLE, LEFT ARM IN SLING, DRESSING CDI TO LEFT SHOULDER.
== END 2019-04-30 13:30 | disposition home or self-care (01) ==
LOC: D.OPS 06:15 → D.PAN 07:00 → D.OPS 07:00 → D.PAN 08:15 → D.OPS 13:30
PROVIDERS: Anesthesiology; ATTEND Orthopaedic Surgery
DX: S43.432D Superior glenoid labrum lesion of left shoulder, subsequent encounter (principal); M13.812 Other specified arthritis, left shoulder; M75.42 Impingement syndrome of left shoulder

== ENCOUNTER → 2019-05-28 08:30 | Outpatient (CLI) | payer MEDICAID ==
[2019-04-30 07:39] VITALS: BMI 19.8
[~2019-05-28 08:30] MED LIST changes: +DILAUDID4 MG PO
== END | disposition home or self-care (01) ==
LOC: D.MRI 08:30
PROVIDERS: ATTEND Orthopaedic Surgery
DX: M67.432 Ganglion, left wrist (principal)

== ENCOUNTER 2019-10-30 02:40 | Emergency (ER) | payer MEDICAID ==
[~2019-10-30] VITALS: Ht 160 cm; Wt 51.4 kg
[2019-10-30 02:45] VITALS: Ht 160 cm; Wt 51.4 kg
[2019-10-30] MEDS ORDERED: ULTRAM50 MG PO (02:50)
[2019-10-30 02:58] LABS: BASOPHILS 0.3 % (0-2); EOSINOPHILS 0.8 % (0-7); HEMATOCRIT 39.8 % (36.0-48.0); IMMATURE GRANULOCYTES 0.1 % (0-5); LYMPHOCYTES 27.2 % (15-50); MCH 29.4 pg (26.0-34.0); MCHC 32.7 g/dL (31.0-37.0); MEAN PLATELET VOLUME 9.1 fL (7.4-10.4); MONOCYTES 5.4 % (2-11); NEUTROPHILS 66.2 % (40-80); PLATELET COUNT 272 10x3/uL (130-400); RBC 4.42 10x6/uL (4.00-5.40); WBC 7.2 10x3/uL (4.8-10.8)
[2019-10-30 03:06] LABS: CALC OSMOLALITY 290 mosm/kg (275-300); CARBON DIOXIDE 29.1 mmol/L (21.0-32.0); CHLORIDE - SERUM 104 mmol/L (98-107); CREATININE - SERUM 1.1 mg/dL (0.6-1.3); GLUCOSE 131 mg/dL (74-106); POTASSIUM - SERUM 3.6 mmol/L (3.5-5.1); SODIUM 142 mmol/L (136-145); UREA NITROGEN 29 mg/dL (7-18); eGFR NON AFRICAN AMERICAN 54 mL/min (90-120)
[2019-10-30 03:13] LABS: ALBUMIN 4.1 g/dL (3.4-5.0); ALKALINE PHOSPHATASE 86 U/L (30-120); ALT (SGPT) 81 U/L (10-68); AMYLASE - SERUM 51 U/L (25-115); BILIRUBIN - TOTAL 0.42 mg/dL (0.2-1.3); LIPASE 213 U/L (73-393); PROTEIN - SERUM 7.5 g/dL (6.4-8.2)
[2019-10-30 03:15] LABS: BILIRUBIN NEGATIVE (NEGATIVE); KETONE NEGATIVE (NEGATIVE); NITRITE NEGATIVE (NEGATIVE); RED CELLS - URINE 0-5 /hpf (0-5); UROBILINOGEN NORMAL (NORMAL)
[2019-10-30 03:16] LABS: TROPONIN-I < 0.017 ng/mL (0.000-0.060)
[2019-10-30 06:16] VITALS: BP 120/79
== END 2019-10-30 06:16 | disposition home or self-care (01) ==
LOC: D.ER 02:40
PROVIDERS: Family Medicine
DX: R10.9 Unspecified abdominal pain (principal)

== ENCOUNTER 2019-11-14 01:15 | Inpatient (IN) | payer BC ==
[~2019-11-14] VITALS: Ht 160 cm; Wt 49.6 kg
[2019-11-14] MEDS ORDERED: OXYCONTIN10 MG PO (01:33)
[2019-11-14 02:13] LABS: BASOPHILS 0.2 % (0-2); EOSINOPHILS 1.7 % (0-7); HEMATOCRIT 40.9 % (36.0-48.0); HEMOGLOBIN 13.4 g/dL (12-16); IMMATURE GRANULOCYTES 0.1 % (0-5); LYMPHOCYTES 24.5 % (15-50); MCH 29.9 pg (26.0-34.0); MCHC 32.8 g/dL (31.0-37.0); MCV 91.3 fL (80.0-100.0); MEAN PLATELET VOLUME 9.5 fL (7.4-10.4); MONOCYTES 7.1 % (2-11); NEUTROPHILS 66.4 % (40-80); PLATELET COUNT 311 10x3/uL (130-400); RBC 4.48 10x6/uL (4.00-5.40); RDW 13.8 % (11.5-14.5); WBC 9.1 10x3/uL (4.8-10.8)
[2019-11-14 02:20] LABS: CALC OSMOLALITY 283 mosm/kg (275-300); CALCIUM 9.7 mg/dL (8.5-10.1); CARBON DIOXIDE 31.9 mmol/L (21.0-32.0); CHLORIDE - SERUM 103 mmol/L (98-107); GLUCOSE 170 mg/dL (74-106); POTASSIUM - SERUM 3.5 mmol/L (3.5-5.1); SODIUM 140 mmol/L (136-145); UREA NITROGEN 15 mg/dL (7-18); eGFR NON AFRICAN AMERICAN 61 mL/min (90-120)
[2019-11-14 02:36] LABS: ALBUMIN 4.1 g/dL (3.4-5.0); ALKALINE PHOSPHATASE 819 U/L (30-120); ALT (SGPT) 864 U/L (10-68); AMYLASE - SERUM 55 U/L (25-115); BILIRUBIN - TOTAL 1.46 mg/dL (0.2-1.3); LIPASE 222 U/L (73-393); PROTEIN - SERUM 7.7 g/dL (6.4-8.2)
[2019-11-14 02:40] LABS: BILIRUBIN NEGATIVE (NEGATIVE); KETONE NEGATIVE (NEGATIVE); NITRITE NEGATIVE (NEGATIVE); UROBILINOGEN 8 mg/dL (< 2); WHITE CELLS - URINE 0-5 HPF (0-4)
[2019-11-14 02:46] LABS: TROPONIN-I < 0.017 ng/mL (0.000-0.060)
--- NOTE | 2019-11-14 04:13 | NUR ---
PATIENT IN WITH C/O RLQ PAIN X 4 WEEKS, STATES SHE HAS SEEN HER DOCTOR AND SHE HAS LIVER PROBLEMS. NOT COOPERATIVE, DOESN'T WANT US TO RUN TEST JUST WANTS PAIN MEDICATION, SON AT BEDSIDE. STATES HER BM ARE WNL.
--- NOTE | 2019-11-14 04:15 | NUR ---
MEDICATIONS AND NS GIVEN PER ORDER, PATIENT IS MORE COOPERATIVE AT THIS TIME.
[2019-11-14 05:00] VITALS: BP 126/77
--- NOTE | 2019-11-14 06:00 | NUR ---
PATIENT RESTING QUIETLY AT THIS TIME, MEDICATION GIVEN PER ORDER, NS INFUSING PER ORDER, PT STABLE, CALL LIGHT WITHIN REACH.
--- NOTE | 2019-11-14 07:14 | NUR ---
REPORT GIVEN TO OLINDA LU
--- NOTE | 2019-11-14 07:35 | NUR ---
PATIENT REFUSED MRCP. STATED DONE AT [facility] ON 11-12-2019. INFORMED DR DENNIS AND OLINDA WILSON R.N.
[2019-11-14 08:00] VITALS: BP 92/40
[2019-11-14 12:00] VITALS: BP 126/75
--- NOTE | 2019-11-14 12:54 | NUR ---
RETURNED FROM MRI
[2019-11-14 15:37] VITALS: BP 116/77
[2019-11-14 16:14] VITALS: BP 138/79; BMI 18.2
--- NOTE | 2019-11-14 16:37 | NUR ---
ALERT AND ORIENTED X4. UP ADLIB. ABDOMEN SOFT WITH SLIGHT RUQ TENDERNESS ON PALPATION. BOWEL SOUNDS HYPOACTIVE X4 ANTERIOR. ENCOURAGED TO USE CALL LIGHT FOR ASSSIT. ENCOURAGED TO USE CALL LIGHT FOR ASSIST
--- NOTE | 2019-11-14 20:00 | NUR ---
A&O X 4. AMBULATES INDEPENDENTLY. INFORMED CONSENTS SIGNED AND IN CHART. REPORTS PAIN OF 5-6/10 TO ABDOMEN AND WOULD LIKE PAIN MEDS AFTER SHE SELF-PERFORMS HIBICLEANS. NEW ID BAND APPLIED. REMOVED FROM IV FLUIDS FOR SHOWER, CTM.
[2019-11-14 21:16] VITALS: BP 138/75
[2019-11-15] VITALS (9 sets, daily range): BP systolic 108–130; BP diastolic 44–80; Ht 160 cm; Wt 49.6 kg
--- NOTE | 2019-11-15 02:39 | NUR ---
I have reviewed this patient and I concur with the Shift Assessment completed by the Licensed Practical Nurse today this shift.
--- NOTE | 2019-11-15 03:00 | NUR ---
NO TELEMETRY AVAILABLE PER METAL MINER BLASTING.
[2019-11-15 05:10] LABS: BASOPHILS 0.7 % (0-2); EOSINOPHILS 2.3 % (0-7); HEMATOCRIT 36.3 % (36.0-48.0); HEMOGLOBIN 11.5 g/dL (12-16); IMMATURE GRANULOCYTES 0.2 % (0-5); LYMPHOCYTES 43.3 % (15-50); MCH 29.2 pg (26.0-34.0); MCHC 31.7 g/dL (31.0-37.0); MCV 92.1 fL (80.0-100.0); MEAN PLATELET VOLUME 9.3 fL (7.4-10.4); MONOCYTES 6.5 % (2-11); PLATELET COUNT 257 10x3/uL (130-400); RBC 3.94 10x6/uL (4.00-5.40); RDW 13.7 % (11.5-14.5)
[2019-11-15 05:33] LABS: WBC 4.3 10x3/uL (4.8-10.8)
[2019-11-15 05:42] LABS: ALKALINE PHOSPHATASE 607 U/L (30-120); ALT (SGPT) 772 U/L (10-68); BILIRUBIN - TOTAL 0.63 mg/dL (0.2-1.3); CALCIUM 8.3 mg/dL (8.5-10.1); CARBON DIOXIDE 28.3 mmol/L (21.0-32.0); CHLORIDE - SERUM 107 mmol/L (98-107); MAGNESIUM - SERUM 1.7 mg/dL (1.8-2.4); PHOSPHOROUS 3.6 mg/dL (2.5-4.9); POTASSIUM - SERUM 3.4 mmol/L (3.5-5.1); PROTEIN - SERUM 6.1 g/dL (6.4-8.2); SODIUM 141 mmol/L (136-145)
[2019-11-15 05:44] LABS: CALC OSMOLALITY 277 mosm/kg (275-300); CREATININE - SERUM 0.7 mg/dL (0.6-1.3); GLUCOSE 89 mg/dL (74-106); UREA NITROGEN 8 mg/dL (7-18); eGFR NON AFRICAN AMERICAN > 90 mL/min (90-120)
--- NOTE | 2019-11-15 08:40 | NUR ---
0700 BEDSIDE REPORT RECEIVED ASSESSMENT COMPLETE REMAINS NPO FOR PROCEEDURE
--- NOTE | 2019-11-15 08:42 | NUR ---
0830 C/O PAIN AT IV SITE RESTARTED IV TO RIGHT FOREARM WITH 20 GAUGE NEEDLE
--- NOTE | 2019-11-15 13:29 | NUR ---
1300 DR MADRID ROUNDING ON PATIENT
[2019-11-16] VITALS (7 sets, daily range): BP systolic 93–134; BP diastolic 41–84
--- NOTE | 2019-11-16 03:48 | NUR ---
I have reviewed this patient and I concur with the Shift Assessment completed by the Licensed Practical Nurse today this shift.
[2019-11-16 06:28] LABS: BASOPHILS 0.4 % (0-2); EOSINOPHILS 1.5 % (0-7); HEMATOCRIT 36.2 % (36.0-48.0); HEMOGLOBIN 11.4 g/dL (12-16); IMMATURE GRANULOCYTES 0.2 % (0-5); MCH 29.1 pg (26.0-34.0); MCHC 31.5 g/dL (31.0-37.0); MCV 92.3 fL (80.0-100.0); MEAN PLATELET VOLUME 9.3 fL (7.4-10.4); MONOCYTES 7.7 % (2-11); NEUTROPHILS 60.2 % (40-80); PLATELET COUNT 274 10x3/uL (130-400); RBC 3.92 10x6/uL (4.00-5.40); RDW 13.8 % (11.5-14.5); WBC 5.3 10x3/uL (4.8-10.8)
[2019-11-16 06:54] LABS: ALBUMIN 2.9 g/dL (3.4-5.0); ALKALINE PHOSPHATASE 510 U/L (30-120); BILIRUBIN - TOTAL 0.33 mg/dL (0.2-1.3); CALC OSMOLALITY 283 mosm/kg (275-300); CALCIUM 8.4 mg/dL (8.5-10.1); CARBON DIOXIDE 27.2 mmol/L (21.0-32.0); CHLORIDE - SERUM 108 mmol/L (98-107); CREATININE - SERUM 0.7 mg/dL (0.6-1.3); GLUCOSE 106 mg/dL (74-106); POTASSIUM - SERUM 3.9 mmol/L (3.5-5.1); PROTEIN - SERUM 5.6 g/dL (6.4-8.2); SODIUM 143 mmol/L (136-145); UREA NITROGEN 9 mg/dL (7-18); eGFR NON AFRICAN AMERICAN > 90 mL/min (90-120)
[2019-11-16 06:58] LABS: ALT (SGPT) 495 U/L (10-68)
--- NOTE | 2019-11-16 08:22 | NUR ---
FLUROSCOPY TIME 23.1 SECONDS CONTRAST USED, 10CC
--- NOTE | 2019-11-16 10:12 | NUR ---
0700 BEDSIDE REPORT RECEIVED FROM FAIZA LU ASLEEP, AWAKENS TO VOICE ASSESSMENT COMPLETE
--- NOTE | 2019-11-16 11:16 | NUR ---
1000 AMBULATING TO BATH ROOM WITHOUT ASSIST
--- NOTE | 2019-11-16 14:49 | MORECARE ---
CASE MANAGEMENT DISCHARGE SUMMARY PATIENT: LUIS CARLOS BARNETT UNIT: [id number] ADM DATE: 11/14/19 AGE: 58 : 64 SEX: F ROOM/BED: D.2236 AUTHOR: TAO HERNANDEZ PHYSICIAN: REFERRING PHYSICIAN: SENG RENAE MD DATE OF SERVICE: 11/16/19 Discharge Plan Patient Name: LUIS CARLOS BARNETT Facility: [facility]:[place] : 1960 Planned Disposition: Anticipated Discharge Date: Discharge Date: Expected LOS: Initial Reviewer: [email or web address] Initial Review Date: 11/14/2019 Generated: 11/16/19 3:49 pm Comments DCP- Discharge Planning Updated by [email or web address]: Florence Kiser on 11/16/19 1:[address] Patient Name: LUIS CARLOS BARNETT Admission Status: ER Accout number: [id number] Admission Date: 11-14-2019 : 1960 Admission Diagnosis:OTHER CHOLELITHIASIS WITHOUT OBSTRUCTION Attending: SENG RENAE Current LOS: 2 Anticipated DC Date: Planned Disposition: Primary Insurance: [employer] OUT OF STATE Discharge Planning Comments: CM met with patient at bedside after explaining CM role and obtaining verbal consent. CM discussed availability / needs of home health, REHAB and medical equipment. PATIENT DENIES ANY DISCHARGE NEED. PLANS TO RETURN HOME WHEN LABS ARE IMPROVED. CM TO FOLLOW NEEDED. Rotary Soil Stabilizer: Florence Kiser DCPIA - Discharge Planning Initial Assessment Updated by [email or web address]: Florence Kiser on 11/16/19 2:45 pm * Is the patient Alert and Oriented? Yes * PCP [facility] * Pharmacy [facility] * Preadmission Environment Home Alone * ADLs Independent * Equipment None * Community resources currently utilized None * Additional services required to return to the preadmission environment? No * Can the patient safely return to the preadmission environment? Yes * Has this patient been hospitalized within the prior 30 days at any hospital? No Patient Name: LUIS CARLOS BARNETT Page [id number] at 0990 All edits/amendments must be made on the electronic document DICTATION DATE: 11/16/19 1443 FLESHING MACHINE OPERATOR: MICHELLE 11/16/19 1440 RPT#: [id number] DC DATE: STATUS: ADM IN [facility] [address] [place] [address] END OF REPORT
--- NOTE | 2019-11-16 20:00 | NUR ---
PT TAKING SHOWER AT THIS TIME
--- NOTE | 2019-11-16 22:00 | NUR ---
PT SITTING UP IN BED WITHOUT DISTRESS, AOX4. PROVIDED ICE CREAM. DENIES OTHER NEEDS. CL IN REACH, WILL CTM
[2019-11-17] VITALS: BP 119/65
[2019-11-17 04:00] VITALS: BP 120/57
[2019-11-17 06:53] LABS: BASOPHILS 0.4 % (0-2); EOSINOPHILS 1.6 % (0-7); HEMATOCRIT 34.9 % (36.0-48.0); HEMOGLOBIN 11.2 g/dL (12-16); IMMATURE GRANULOCYTES 0.4 % (0-5); MCH 29.2 pg (26.0-34.0); MCHC 32.1 g/dL (31.0-37.0); MCV 90.9 fL (80.0-100.0); MEAN PLATELET VOLUME 9.7 fL (7.4-10.4); MONOCYTES 6.5 % (2-11); NEUTROPHILS 53.1 % (40-80); PLATELET COUNT 292 10x3/uL (130-400); RBC 3.84 10x6/uL (4.00-5.40); RDW 13.5 % (11.5-14.5); WBC 5.7 10x3/uL (4.8-10.8)
[2019-11-17 07:45] LABS: ALBUMIN 2.9 g/dL (3.4-5.0); ALKALINE PHOSPHATASE 426 U/L (30-120); BILIRUBIN - TOTAL 0.26 mg/dL (0.2-1.3); CALCIUM 8.7 mg/dL (8.5-10.1); CARBON DIOXIDE 27.7 mmol/L (21.0-32.0); CHLORIDE - SERUM 109 mmol/L (98-107); CREATININE - SERUM 0.6 mg/dL (0.6-1.3); GLUCOSE 94 mg/dL (74-106); POTASSIUM - SERUM 3.4 mmol/L (3.5-5.1); PROTEIN - SERUM 5.9 g/dL (6.4-8.2); SODIUM 144 mmol/L (136-145); eGFR NON AFRICAN AMERICAN > 90 mL/min (90-120)
[2019-11-17 07:47] LABS: ALT (SGPT) 355 U/L (10-68); CALC OSMOLALITY 286 mosm/kg (275-300); UREA NITROGEN 13 mg/dL (7-18)
--- NOTE | 2019-11-17 07:58 | NUR ---
NO COMPLAINTS OF PAIN AT PRESENT. STATES FEELS GOOD AND WANTS TO GO HOME TODAY. CALL LIGHT IN REACH
[2019-11-17 12:57] VITALS: BP 118/78
--- NOTE | 2019-11-18 09:37 | MORECARE ---
CASE MANAGEMENT DISCHARGE SUMMARY PATIENT: LUIS CARLOS BARNETT UNIT: [id number] ADM DATE: 11/14/19 AGE: 58 : 64 SEX: F ROOM/BED: D.2236 AUTHOR: TAO HERNANDEZ PHYSICIAN: REFERRING PHYSICIAN: SENG RENAE MD DATE OF SERVICE: 11/18/19 Discharge Plan Patient Name: LUIS CARLOS BARNETT Facility: [facility]:[place] : 1960 Planned Disposition: Anticipated Discharge Date: Discharge Date: 11/17/2019 Expected LOS: Initial Reviewer: [email or web address] Initial Review Date: 11/14/2019 Generated: 11/18/19 10:37 am Comments DCP- Discharge Planning Updated by [email or web address]: Florence Kiser on 11/16/19 1:[address] Patient Name: LUIS CARLOS BARNETT Admission Status: ER Accout number: [id number] Admission Date: 11-14-2019 : 1960 Admission Diagnosis:OTHER CHOLELITHIASIS WITHOUT OBSTRUCTION Attending: SENG RENAE Current LOS: 2 Anticipated DC Date: Planned Disposition: Primary Insurance: [employer] OUT OF STATE Discharge Planning Comments: CM met with patient at bedside after explaining CM role and obtaining verbal consent. CM discussed availability / needs of home health, REHAB and medical equipment. PATIENT DENIES ANY DISCHARGE NEED. PLANS TO RETURN HOME WHEN LABS ARE IMPROVED. CM TO FOLLOW NEEDED. Biometric Screener: Florence Kiser DCPIA - Discharge Planning Initial Assessment Updated by [email or web address]: Florence Kiser on 11/16/19 2:45 pm * Is the patient Alert and Oriented? Yes * PCP [facility] * Pharmacy [facility] * Preadmission Environment Home Alone * ADLs Independent * Equipment None * Community resources currently utilized None * Additional services required to return to the preadmission environment? No * Can the patient safely return to the preadmission environment? Yes * Has this patient been hospitalized within the prior 30 days at any hospital? No Last DP export: 11/16/19 1:49 p Patient Name: LUIS CARLOS BARNETT Page [id number] at 0937 All edits/amendments must be made on the electronic document DICTATION DATE: 11/18/19936 STRAP BUCKLER: DM 11/18/1935 RPT#: [id number] DC DATE:11/17/19 STATUS: DIS IN [facility] [address] [place] [address] END OF REPORT
== END 2019-11-17 17:00 | disposition home or self-care (01) | DRG 444 ==
LOC: D.ER 01:15 → D.MS 04:31 → D.EDHOLD 04:31 → D.MS 14:39
PROVIDERS: Family Medicine; Internal Medicine Gastroenterology; ADMIT Emergency Medicine; ATTEND Emergency Medicine
PROC: 0FC98ZZ Extirpation of Matter from Common Bile Duct, Via Natural or Artificial Opening Endoscopic (ICD-10-PCS; principal; 2019-11-15 07:24)
DX: K80.51 Calculus of bile duct without cholangitis or cholecystitis with obstruction (principal); K72.00 Acute and subacute hepatic failure without coma; R11.2 Nausea with vomiting, unspecified; E86.0 Dehydration; K57.90 Diverticulosis of intestine, part unspecified, without perforation or abscess without bleeding; F40.240 Claustrophobia; G89.29 Other chronic pain; H91.90 Unspecified hearing loss, unspecified ear; R60.9 Edema, unspecified